=== PATIENT | female | born 1960 | race Caucasian/White ===

== ENCOUNTER 2019-08-19 17:10 | Emergency (ER) | payer OTHER ==
[~2019-08-19] VITALS: Ht 167.6 cm; Wt 105.2 kg
[2019-08-19 17:25] VITALS: BP 155/81
--- NOTE | 2019-08-19 17:28 | NUR ---
AMBULATES BACK TO THE LOBBY
[2019-08-19 18:18] LABS: BASOPHILS # (AUTO) 0.1 K/uL (0.00-0.22); EOSINOPHILS # (AUTO) 0.2 K/uL (0-0.4); EOSINOPHILS % (AUTO) 3.4 % (0.0-4.0); HEMATOCRIT 41.2 % (36-48); HEMOGLOBIN 13.4 g/dL (12.0-16.0); LYMPHOCYTES # (AUTO) 2.1 K/uL (2.5-16.5); LYMPHOCYTES % (AUTO) 29.5 % (20.5-51.1); MEAN CORPUSCULAR HEMOGLOBIN 28 pg (27-31); MEAN CORPUSCULAR HGB CONC 33 g/dL (33-37); MEAN CORPUSCULAR VOLUME 86.6 fL (80-94); MONOCYTES # (AUTO) 0.4 K/uL (0.8-1.0); MONOCYTES % (AUTO) 5.5 % (1.7-9.3); NEUTROPHILS # (AUTO) 4.2 K/uL (1.8-7.7); NEUTROPHILS % (AUTO) 60.6 % (42.2-75.2); PLATELET COUNT (AUTO) 220 K/uL (140-450); RED BLOOD CELL COUNT(AUTO) 4.75 MIL/uL (4.20-5.40); RED CELL DISTRIBUTION WIDTH 13.3 % (11.6-13.7)
[2019-08-19 18:31] LABS: ANION GAP 11.6 (8-16); CARBON DIOXIDE 27.6 mmol/L (21-32); CREATININE 0.9 mg/dL (0.6-1.3); POTASSIUM 4.2 mmol/L (3.5-5.1)
[2019-08-19 18:36] LABS: ALBUMIN 3.9 g/dL (3.4-5.0); TOTAL BILIRUBIN 0.3 mg/dL (0.0-1.0)
[2019-08-19] MEDS ORDERED: SUMAtriptan 25 MG TAB PO ONE (19:10)
--- NOTE | 2019-08-19 19:18 | NUR ---
58/F PRESENTS TO ED, C/O L SIDED HEADACHE, X1 WEEK, WORSENING. REPORTS LIGHT/SOUND SENSITIVITY. DENIES N/V. PT AWAKE AND ALERT, PERRLA 3MM, SKIN NORMAL COLOR WARM AND DRY, RR EVEN AND UNLABORED. HX SVT, HTN, DEPRESSION, MIGRAINE.
--- NOTE | 2019-08-19 19:40 | NUR ---
PER PT, PT TOOK [facility] TO GET TO HOSPITAL, SHE DID NOT DRIVE.
[2019-08-19] MEDS ORDERED: HYDROcodone/APAP 5/325 MG 1 TAB TAB PO ONE (19:45)
[2019-08-19 20:00] VITALS: BP 140/87
--- NOTE | 2019-08-19 20:01 | NUR ---
Patient discharged with v/s stable. Written and verbal after care instructions given and explained. Patient alert, oriented and verbalized understanding of instructions. Ambulatory with steady gait. All questions addressed prior to discharge. ID band removed. Patient advised to follow up with PMD. Rx of XANAX, NAPROXEN, GABAPENTIN given. Patient educated on indication of medication including possible reaction and side effects. Opportunity to ask questions provided and answered.
== END 2019-08-19 20:01 | disposition home or self-care (01) ==
LOC: MED 17:10
DX: F41.9 Anxiety disorder, unspecified (principal); R51 Headache; R42 Dizziness and giddiness; I10 Essential (primary) hypertension
CPT/HCPCS: 36415; 80053; 85025; 99283

== ENCOUNTER 2019-12-15 17:02 | Emergency (ER) | payer OTHER ==
[~2019-12-15] VITALS: Ht 162.6 cm; Wt 105.2 kg
[2019-12-15 17:16] VITALS: BP 131/65
--- NOTE | 2019-12-15 17:22 | NUR ---
PT C/O FEELING ANXIOUS FOR A LONG TIME AND WAS NOT ABLE TO SEE A PSYCHAITRIST DUE TO NO ONE COULD TAKE HER INSURANCE. PT DENIES COUGH, FEVER, CP, SOB, N/V/D, RECENT TRAVEL, OR SICK CONTACT WITH CONFIRMED COVID-19 PEOPLE. PATIENT STATES PAIN OF 0/10 AT THIS TIME; VSS; PATIENT POSITIONED FOR COMFORT; HOB ELEVATED; BEDRAILS UP X2; BED DOWN. ER MD MADE AWARE OF PT STATUS. PT IS ON THE MONITOR.
--- NOTE | 2019-12-15 17:30 | NUR ---
Dr. Chavez is evaluating pt at bedside.
--- NOTE | 2019-12-15 17:40 | NUR ---
PT AGITATED AND UPSET. PT STATES "I'M UPSET! THE DOCTOR DIDN'T ASK ME IF THE MEDICATION WOULD EVEN WORK. THAT MEDICATION DOESN'T EVEN WORK FOR ME!" PT REFUSING TO LEAVE.
[2019-12-15 17:47] VITALS: BP 127/61
--- NOTE | 2019-12-15 17:47 | NUR ---
Patient discharged with v/s stable. Written and verbal after care instructions given and explained. Patient alert and oriented. Ambulatory with steady gait. All questions addressed prior to discharge. ID band removed. Rx of Hydroxyzine Hydrochloride given but pt refused to take the prescription. Recommended pt to see a psychiatrist as soon as possible, which are more than 50 available in the network of her insurance.
== END 2019-12-15 17:47 | disposition home or self-care (01) ==
LOC: MED 17:02
DX: F41.9 Anxiety disorder, unspecified (principal); I10 Essential (primary) hypertension
CPT/HCPCS: 99283

== ENCOUNTER → 2021-05-25 | Emergency (ER) | payer OTHER ==
--- NOTE | 2021-05-25 20:22 | NUR ---
PT CALLED IN LOBBY FOR TRIAGE, NO ANSWER.
--- NOTE | 2021-05-25 20:32 | NUR ---
PT CALLED IN LOBBY FOR TRIAGE FOR SECOND TIME, NO ANSWER.
--- NOTE | 2021-05-25 20:42 | NUR ---
PT CALLED IN LOBBY FOR TRIAGE FOR THIRD TIME, NO ANSWER. Addendum: 05/25/21 at 2050 by [email or web address] MD MADE AWARE.
== END | disposition left against medical advice (07) ==
LOC: MED 20:17
DX: Z53.21 Procedure and treatment not carried out due to patient leaving prior to being seen by health care provider (principal)